=== PATIENT | female | born 1960 | race American Indian/Alaskan Native ===

== ENCOUNTER 2017-06-07 15:51 | Emergency (ER) | payer OTHER ==
[2017-06-07 16:06] VITALS: BP 142/76; PULSE 84; RESP 18; TEMP 98.8; O2SAT 98
--- NOTE | 2017-06-07 16:32 | C.PDOC ---
History Of Present Illness 57 yr old female with PMHx of hyperlipidemia, presents to the ER with complaints of left leg pain for the past 1 month. 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 States the pain is worse around the knee. Denies any known trauma , back pain, foot pain, weakness or numbness. Time Seen by Provider: 06/07/17 16:17 Chief Complaint (Nursing): Lower Extremity Problem/Injury History Per: Patient History/Exam Limitations: no limitations Onset/Duration Of Symptoms: Days (1 month) Past Medical History Reviewed: Historical Data, Nursing Documentation, Vital Signs Vital Signs: Last Vital Signs Temp 98.8 F 06/07/17 16:02 Pulse 84 06/07/17 16:02 Resp 18 06/07/17 16:02 BP 142/76 06/07/17 16:02 Pulse Ox 98 06/07/17 17:20 - Medical History PMH: Anemia, Arthritis, Gall Bladder Disease, Hiatal Hernia, Hypercholesterolemia, Kidney Stones, Rheumatoid Arthritis Surgical History: Cholecystectomy Family History: States: No Known Family Hx - Social History Hx Tobacco Use: No Hx Alcohol Use: No Hx Substance Use: No - Immunization History Hx Tetanus Toxoid Vaccination: No Hx Influenza Vaccination: No Hx Pneumococcal Vaccination: No Review Of Systems Except As Marked, All Systems Reviewed And Found Negative. Musculoskeletal: Positive for: Leg Pain (Left ). Negative for: Back Pain, Foot Pain Neurological: Negative for: Weakness, Numbness Physical Exam - Physical Exam Appears: Non-toxic, No Acute Distress Skin: Warm, Dry, No Rash Head: Atraumatic, Normacephalic Oral Mucosa: Moist Chest: Symmetrical, No Tenderness Cardiovascular: Rhythm Regular, No Murmur Respiratory: Normal Breath Sounds, No Rhonchi, No Stridor Extremity: Normal ROM, No Calf Tenderness, No Swelling Neurological/Psych: Oriented x3, Normal Speech, Normal Motor ED Course And Treatment - Laboratory Results Result Diagrams: 06/07/17 16:34 06/07/17 16:34 O2 Sat by Pulse Oximetry: 98 (RA) Pulse Ox Interpretation: Normal Medical Decision Making Medical Decision Making: r/o dvt/occult fx PLAN: * X-Ray - Left Knee * D-Dimer * CBC * CMP * Toradol IM noted anemia, pt reports h/o of anemia, h/h baseline. xr neg for fx, dimer neg, dvt less likely. advise outpt f/u and return precautions Disposition - Disposition Referrals: [facility] [Outside] [facility] [Outside] [facility] [Outside] Disposition: HOME/ ROUTINE Disposition Time: 17:18 Condition: STABLE Additional Instructions: please follow up with your doctor. return to er with worsening symptoms or concerns Prescriptions: Naproxen [Naprosyn] 500 mg PO BID PRN #14 tablet PRN Reason: Pain, Mild (1-3) Instructions: Arthralgia (ED), Leg Pain (ED) Forms: [employer] (Argentine) - Clinical Impression Clinical Impression: Leg pain - Scribe Statement The provider has reviewed the documentation as recorded by the Lnidaibantonia Simons Provider Attestation: All medical record entries made by the Lindaibantonia were at my direction and personally dictated by me. I have reviewed the chart and agree that the record accurately reflects my personal performance of the history, physical exam, medical decision making, and the department course for this patient. I have also personally directed, reviewed, and agree with the discharge instructions and disposition.
[2017-06-07 16:39] LABS: BASO % 0.7 % (0.0-2.0); EOS # 0.1 K/uL (0.0-0.7); EOS % 1.7 % (0.0-4.0); LYMPH # 3.3 K/uL (1.0-4.3); MEAN CELL VOLUME 86.8 fL (81.0-99.0); MEAN CORPUSCULAR HEMOGLOBIN 29.4 pg (27.0-31.0); MEAN CORPUSCULAR HGB CONC 33.9 g/dL (33.0-37.0); MEAN PLATELET VOLUME 7.5 fL (7.2-11.7); MONO # 0.4 K/uL (0.0-0.8); MONO % 6.1 % (0.0-10.0); NRBC % 0.1 % (0.0-2.0); RED CELL DISTRIBUTION WIDTH 15.2 % (11.5-14.5); WHITE BLOOD COUNT 6.1 K/uL (4.8-10.8)
[2017-06-07 16:45] LABS: CHLORIDE 104 mmol/L (98-107); POTASSIUM 3.8 mmol/L (3.6-5.2); SODIUM 141 mmol/L (132-148)
[2017-06-07 16:47] LABS: GFR AFRICAN-AMERICAN > 60
[2017-06-07 16:48] LABS: ALB/GLOB RATIO 1.1 (1.0-2.1); ALKALINE PHOSPHATASE 86 U/L (38-126); ALT/SGPT 27 U/L (9-52); AST/SGOT 32 U/L (14-36); BILIRUBIN,TOTAL 0.5 mg/dL (0.2-1.3); BLOOD UREA NITROGEN 11 mg/dL (7-17); CARBON DIOXIDE 26 mmol/L (22-30); GLUCOSE,RANDOM 84 mg/dL (65-105); TOTAL PROTEIN 8.3 g/dL (6.3-8.3)
[2017-06-07 16:49] LABS: INR 1.1
--- NOTE | 2017-06-07 17:12 | RAD ---
PROCEDURE: Left Knee Radiographs. HISTORY: Pain. COMPARISON: None. FINDINGS: BONES: Normal. No fracture. Well corticated ossicles seen at the posterior aspect of the knee joint. JOINTS: [id number] osteoarthritic changes. JOINT EFFUSION: Small joint effusion is suspected. OTHER FINDINGS: None. IMPRESSION: [id number] osteoarthritic changes.
== END 2017-06-07 17:39 | disposition home or self-care (01) ==
LOC: C.ER 15:51
DX: M79.605 Pain in left leg (principal); E78.5 Hyperlipidemia, unspecified; M06.9 Rheumatoid arthritis, unspecified; E78.00 Pure hypercholesterolemia, unspecified

== ENCOUNTER 2017-12-25 12:37 | Emergency (ER) | payer OTHER ==
[2017-12-25 12:49] VITALS: BP 169/92; PULSE 90; RESP 18; TEMP 97.9; O2SAT 100
--- NOTE | 2017-12-25 15:18 | C.PDOC ---
History Of Present Illness 57 yo with PMH of HTN, hypothyroidism, and pituitary adenoma, female c/o right arm pain that she felt this morning but has improved . Notes "when it gets cold I have pain". She occasional gets pain to the arm with certain movement. Pain is at the lower arm, does not radiate to the chest. No sob. Pt states since 2006 her right arm had some swelling after pituitary adenoma surgery. She had seen her PMD and surgeon who "didnt think anything of it." No new symptoms or trauma. 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 DEnies fever , change in sensation, URI symptoms, headache, visual changes, neck pain or any other complaints. Time Seen by Provider: 12/25/17 13:11 Chief Complaint (Nursing): Upper Extremity Problem/Injury History Per: Patient History/Exam Limitations: no limitations Onset/Duration Of Symptoms: Hrs Current Symptoms Are (Timing): Better Past Medical History Vital Signs: Last Vital Signs Temp 97.9 F 12/25/17 12:45 Pulse 90 12/25/17 12:45 Resp 18 12/25/17 12:45 BP 169/92 H 12/25/17 12:45 Pulse Ox 100 12/25/17 15:40 - Medical History PMH: Anemia, Arthritis, Gall Bladder Disease, Hiatal Hernia, Hypercholesterolemia, Kidney Stones, Rheumatoid Arthritis Denies: Chronic Kidney Disease Surgical History: Cholecystectomy Family History: States: Unknown Family Hx - Social History Hx Tobacco Use: No Hx Alcohol Use: No Hx Substance Use: No - Immunization History Hx Tetanus Toxoid Vaccination: No Hx Influenza Vaccination: No Hx Pneumococcal Vaccination: No Review Of Systems Except As Marked, All Systems Reviewed And Found Negative. Musculoskeletal: Positive for: Arm Pain (r) Physical Exam - Physical Exam Appears: Well, Non-toxic, No Acute Distress Skin: Normal Color, Warm, Dry Head: Atraumatic, Normacephalic Eye(s): bilateral: Normal Inspection, EOMI Nose: Normal Oral Mucosa: Moist Neck: Normal, Normal ROM, No Midline Cervical Tenderness, No Step Off Deformity , Supple Chest: Symmetrical Cardiovascular: Rhythm Regular Respiratory: Normal Breath Sounds Gastrointestinal/Abdominal: Normal Exam, Soft, No Tenderness Back: Normal Inspection, No Vertebral Tenderness, Paraspinal Tenderness ((+) right trapezius tenderness , mild lower arm swelling) Extremity: Normal ROM, Capillary Refill (<2 sec) Pulses: Left Radial: Normal, Right Radial: Normal Neurological/Psych: Oriented x3, Normal Motor (5/5 sensation), Normal Sensation ED Course And Treatment O2 Sat by Pulse Oximetry: 100 - CT Scan/US VAscular Right UE Other Rad Studies (CT/US): Read By Radiologist, Radiology Report Reviewed CT/US Interpretation: Negative Progress Note: Pt is complaining of right arm pain which occurs intermittently for years. Notes the swelling has been going on for 10 years. No trauma. Able to remove her shirt without difficulty. FROM. No signs of infection, no erythema or increased warmth. Distal hand is warm. Cap refill< 2 sec. Duplex negative. Instructed to follow up with PMD in 1-2 days. REturn to ER if symptoms persist or worsen. Disposition - Disposition Disposition: HOME/ ROUTINE Disposition Time: 15:38 Condition: STABLE Additional Instructions: Follow up with your doctor in 1-2 days. Return to ER if symptoms persist or worsen. Prescriptions: Acetaminophen [Tylenol 325mg tab] 650 mg PO Q4 PRN #20 tab PRN Reason: Pain, Mild (1-3) Instructions: Muscle Strain Forms: [employer] (Uzbek) - Clinical Impression Clinical Impression: Strain of right upper arm
--- NOTE | 2017-12-25 15:53 | VASCLAB ---
PROCEDURE: Right Upper Extremity Venous Duplex Exam HISTORY: swelling PRIORS: No prior. TECHNIQUE: Right upper extremity, internal jugular, subclavian, axillary, brachial, ulnar, radial, basilic and upper cephalic veins were evaluated. Flow was assessed with color Doppler, compressibility, assessment of phasic flow and augmentation response. Report prepared by JIM Reynolds, RVT FINDINGS: RIGHT: 1. Internal Jugular: 1.1. Compressibility - Fully compressible: Thrombus - None : Flow - Phasic: Augmentation -Normal: Reflux - None. 2. Subclavian: 2.1. Compressibility - Fully compressible: Thrombus - None : Flow - Phasic: Augmentation -Normal: Reflux - None. 3. Axillary: 3.1. Compressibility - Fully compressible: Thrombus - None : Flow - Phasic: Augmentation -Normal: Reflux - None. 4. Brachial: 4.1. Compressibility - Fully compressible: Thrombus - None: Flow - Phasic: Augmentation -Normal: Reflux - None. 5. Ulnar: 5.1. Compressibility - Fully compressible: Thrombus - None: Flow - Phasic: Augmentation -Normal: Reflux - None. 6. Radial: 6.1. Compressibility - Fully compressible: Thrombus - None: Flow - Phasic: Augmentation - Normal: Reflux - None. 7. Cephalic: 7.1. Compressibility - Fully compressible: Thrombus - None: Flow - Phasic: Augmentation -Normal: Reflux - None. 8. Basilic: 8.1. Compressibility - Fully compressible: Thrombus - None: Flow - Phasic: Augmentation -Normal: Reflux - None. OTHER FINDINGS: Right: None. IMPRESSION: Right: No evidence of vein thrombosis of the right upper extremity with excellent venous flow. Normal valve function noted of the right side. Normal venous flow noted in the left internal jugular and left subclavian veins.
== END 2017-12-25 15:45 | disposition home or self-care (01) ==
LOC: C.ER 12:37
DX: S46.911A Strain of unspecified muscle, fascia and tendon at shoulder and upper arm level, right arm, initial encounter (principal); X50.0XXA Overexertion from strenuous movement or load, initial encounter; Y92.89 Other specified places as the place of occurrence of the external cause; Y99.8 Other external cause status